=== PATIENT | female | born 1995 | race Caucasian/White ===

== ENCOUNTER → 2021-01-13 | Outpatient (CLI) | payer OTHER ==
--- NOTE | 2021-01-13 17:36 | RAD ---
Exam Date: 01/13/2021 10:04 AM XR SHOULDER_RIGHT 2+ VIEWS Indication: Reason: NECK AND SHOULDER PAIN / Spl. Instructions: PT IS NINE MONTHS / History: FINDINGS/ IMPRESSION: No acute fracture or dislocation. Alignment and joint spaces are maintained. The soft tissues are w ithin normal limits. Electronically signed by: Jayy Quiroz MD (01/13/2021 5:33 PM) [id number]
--- NOTE | 2021-01-13 17:39 | RAD ---
Exam Date: 01/13/2021 10:04 AM XR CERVICAL SPINE 2-3V Indication: Reason: DISABLILITY DETERMINATION, NECK PAIN / Spl. Instructions: PT IS 9 MONTHS PREGNAN T! / History: FINDINGS/ IMPRESSION: The cervical spine is visualized from C1 to T1 on the lateral view. There is exaggerated cervical lucero dosis. There is no spondylolisthesis. The vertebral body heights are maintained without evidence of acute fracture. Disc spaces are maintained. The atlantoaxial interval is within normal limits. The prevertebral soft tissues are normal. Electronically signed by: Jayy Quiroz MD (01/13/2021 5:36 PM) [id number]
== END ==
LOC: RAD 09:52
PROVIDERS: ATTEND Family Medicine
DX: Z02.71 Encounter for disability determination (principal); M54.2 Cervicalgia; G24.3 Spasmodic torticollis; M25.511 Pain in right shoulder
CPT/HCPCS: 72040; 73030